=== PATIENT | female | born 1990 | race Two or more races ===

== ENCOUNTER 2018-05-28 10:03 | Emergency (ER) | payer MEDICAID, OTHER ==
[~2018-05-28] VITALS: Ht 152.4 cm; Wt 80.3 kg
[2018-05-28] MEDS ORDERED: DIPHENHYDRAMINE 50 MG/ML, 1ML ONE (10:53)
[2018-05-28] MEDS ORDERED: PROCHLORPERAZINE 5 MG/ML, 2ML ONE (10:53)
[2018-05-28] MEDS ORDERED: SODIUM CHLORIDE 0.9% 1,000ML IVBOLUS ONE (11:00)
[2018-05-28] MEDS ORDERED: DIPHENHYDRAMINE 50 MG/ML, 1ML IVPush ONE (11:00)
[2018-05-28] MEDS ORDERED: PROPARACAINE OPHTH 0.5%, 15ML EACHEYE ONE (11:00)
[2018-05-28] MEDS ORDERED: PROCHLORPERAZINE 5 MG/ML, 2ML IVPush ONE (11:00)
[2018-05-28] MEDS ORDERED: FLUORESCEIN OPHTHALMIC 1 MG STRIP EACHEYE ONE (11:00)
[2018-05-28 12:05] VITALS: BP 128/81
== END 2018-05-28 12:36 | disposition home or self-care (01) ==
LOC: ED 11:31
DX: G51.0 Bell's palsy (principal); I10 Essential (primary) hypertension; Z87.19 Personal history of other diseases of the digestive system; Z98.890 Other specified postprocedural states
CPT/HCPCS: 70450; 96361; 96374; 96375; 99284; J0780; J1200; J7030

== ENCOUNTER 2019-06-05 19:29 | Emergency (ER) | payer SELFPAY ==
[~2019-06-05] VITALS: Ht 152.4 cm; Wt 83.4 kg
[2019-06-05 19:39] VITALS: BP 143/93
[2019-06-05] MEDS ORDERED: DEXAMETHASONE 4 MG TABLET PO ONE (20:00)
[2019-06-05] MEDS ORDERED: DEXAMETHASONE 4 MG TABLET ONE (20:05)
[2019-06-05 20:30] LABS: RAPID INFLUENZA A Negative (Negative); RAPID INFLUENZA B Negative (Negative)
== END 2019-06-05 20:48 | disposition home or self-care (01) ==
LOC: ED 20:40
DX: J02.9 Acute pharyngitis, unspecified (principal); B34.9 Viral infection, unspecified; I10 Essential (primary) hypertension; M79.10 Myalgia, unspecified site; R50.81 Fever presenting with conditions classified elsewhere
CPT/HCPCS: 71046; 87081; 87400; 87880; 99284

== ENCOUNTER 2019-06-08 14:46 | Emergency (ER) | payer MEDICAID, OTHER ==
[~2019-06-08] VITALS: Ht 152.4 cm; Wt 82.6 kg
[2019-06-08 14:50] VITALS: BP 139/84
--- NOTE | 2019-06-08 15:19 | NUR ---
PT HAS CO OF CHILL ANS HOT FLASHES AT NIGHT. PT WAS RECENTLY SEEN HERE ON THURSDAY FOR FLU LIKE SYMPTOMS W SORE THROAT. NO MEDS PRESCRIBED. STUDENT AT BEDSIDE. DENIES SOB
[2019-06-08 15:54] LABS: BASOPHILS # (AUTO) 0.01 x10^3/uL (0-0.1); BASOPHILS % (AUTO) 0 % (0-1); EOSINOPHILS # (AUTO) 0.01 x10^3/uL (0-0.4); EOSINOPHILS % (AUTO) 0 % (1-7); LYMPHOCYTES # (AUTO) 0.83 x10^3/uL (1-3.4); LYMPHOCYTES % (AUTO) 25 % (22-44); MD NO; MEAN CORPUSCULAR HEMOGLOBIN 29.1 pg (27.0-34.8); MEAN CORPUSCULAR VOLUME 88.3 fL (80-100); MEAN PLATELET VOLUME 8.6 fL (7.4-10.4); MONOCYTES # (AUTO) 0.51 x10^3/uL (0.2-0.8); MONOCYTES % (AUTO) 15 % (2-9); NEUTROPHILS # (AUTO) 1.99 x10^3/uL (1.8-6.8); NEUTROPHILS % (AUTO) 59 % (42-75); PLATELET COUNT 305 x10^3/uL (130-400); RED BLOOD COUNT 4.63 x10^6/uL (3.82-5.3); RED CELL DISTRIBUTION WIDTH 14.7 % (9.6-15.2)
[2019-06-08 16:06] LABS: ALBUMIN 3.5 g/dL (3.4-5.0); ANION GAP 5 mmol/L (5-15); CALCIUM 8.2 mg/dL (8.5-10.1); CHLORIDE 104 mmol/L (98-107)
--- NOTE | 2019-06-08 17:37 | NUR ---
Patient/Caregiver given discharge instructions and they have confirmed that they understand the instructions. Patient ambulatory with steady gait.
== END 2019-06-08 17:50 | disposition home or self-care (01) ==
LOC: ED 15:44
DX: J02.9 Acute pharyngitis, unspecified (principal); R50.9 Fever, unspecified; M79.10 Myalgia, unspecified site; I10 Essential (primary) hypertension
CPT/HCPCS: 36415; 71046; 80048; 82040; 84443; 85025; 93005; 99284